=== PATIENT | male | born 1935 | race Caucasian/White ===

== ENCOUNTER 2016-11-27 11:03 | Inpatient (IN) | payer MEDICARE, BC ==
[~2016-11-27] VITALS: Ht 172.7 cm; Wt 67.9 kg
[2016-11-27] MEDS ORDERED: SODIUM CHLORIDE 0.9% 1,000 ML ONE ×2 (11:18→14:20)
[2016-11-27] MEDS ORDERED: CEFTRIAXONE 1 GM VIAL ONE (13:09)
[2016-11-27] MEDS ORDERED: SODIUM CHLORIDE 0.9% 100 ML IV ONE (13:10)
[2016-11-27] MEDS ORDERED: MAG HYDROX 30 ML UDC PO PRN (14:05)
[2016-11-27] MEDS ORDERED: FLEET ENEMA 132 ML BTL RECTAL PRN (14:05)
[2016-11-27] MEDS ORDERED: BISACODYL EC 5 MG TAB PO PRN (14:05)
[2016-11-27] MEDS ORDERED: LOPERAMIDE 2 MG CAPSULE PO PRN (14:05)
[2016-11-27] MEDS ORDERED: ALU/MAG/SIM 30 ML UDC PO PRN (14:05)
[2016-11-27] MEDS ORDERED: LACT RINGERS 1,000 ML IV SCH (14:05)
[2016-11-27] MEDS ORDERED: BISACODYL 10 MG SUPP RECTAL PRN (14:05)
[2016-11-27] MEDS: ACETAMINOPHEN 325 MG TAB PO SCH ×2 (14:05→22:05)
[2016-11-27] MEDS ORDERED: GLUCAGON 1 MG VIAL IM PRN (14:05)
[2016-11-27] MEDS ORDERED: GUAIFEN/DM 10 ML UDC PO PRN (14:05)
[2016-11-27] MEDS ORDERED: DEXTROSE 50% SYRINGE 50 ML IV PRN (14:05)
[2016-11-27] MEDS ORDERED: SALINE FLUSH 10 ML FLUSH PRN (14:05)
[2016-11-27] MEDS ORDERED: ONDANSETRON 4 MG VIAL IV PRN (14:05)
[2016-11-27 15:20] VITALS: BP_SYST 108; BP_SYST 110; RESP 18; TEMP 97.5; BMI 22.6
[2016-11-27] MEDS: DUONEB INH SCH ×2 (17:01→23:43)
[2016-11-27 17:05] VITALS: RESP 18
[2016-11-27 19:22] VITALS: BP_SYST 109; RESP 16; TEMP 98.2
[2016-11-27] MEDS: SALINE FLUSH 10 ML FLUSH SCH (19:42)
[2016-11-27] MEDS: Atorvastatin 40 MG TAB PO SCH (20:46)
[2016-11-27] MEDS: risperiDONE 0.25 MG TAB PO SCH (20:47)
[2016-11-27] MEDS: MEMANTINE 5 MG TAB PO SCH (20:47)
[2016-11-27] MEDS: DONEPEZIL HCL 5 MG TAB PO SCH (20:47)
[2016-11-27] MEDS: FAMOTIDINE 20 MG TAB PO SCH (20:47)
[2016-11-27] MEDS: LEVEMIR INSULIN SUBQ SCH (20:48)
[2016-11-27] MEDS ORDERED: METOPROLOL TART 50 MG TAB PO SCH (21:00)
[2016-11-27] MEDS: ACETAMINOPHEN 500 MG TAB PO SCH (22:44)
[2016-11-27 23:29] VITALS: BP_SYST 114; RESP 20; TEMP 97.5
[2016-11-28] VITALS (8 sets, daily range): BP systolic 105–146; RESP 18–24; TEMP 97.2–98; Ht 172.7 cm; Wt 67.9 kg
[2016-11-28] MEDS: SODIUM CHLORIDE 0.9% FLUSH BAG 500 ML IV SCH (06:09)
[2016-11-28] MEDS: ACETAMINOPHEN 500 MG TAB PO SCH ×3 (06:17→22:40)
[2016-11-28] MEDS: SALINE FLUSH 10 ML FLUSH SCH ×2 (07:33→19:39)
[2016-11-28] MEDS: DUONEB INH SCH ×3 (07:47→23:40)
[2016-11-28] MEDS: ASPIRIN 81 MG CHEW TAB PO SCH (09:08)
[2016-11-28] MEDS: risperiDONE 0.25 MG TAB PO SCH ×2 (09:08→20:27)
[2016-11-28] MEDS: CEFTRIAXONE 1 GM in SODIUM CHLORIDE 0.9% 50 ML IV SCH (09:08)
[2016-11-28] MEDS: MEMANTINE 5 MG TAB PO SCH ×2 (09:08→20:27)
[2016-11-28] MEDS: FAMOTIDINE 20 MG TAB PO SCH ×2 (09:08→20:28)
[2016-11-28] MEDS: LEVEMIR INSULIN SUBQ SCH ×2 (09:09→20:28)
[2016-11-28] MEDS: ENOXAPARIN 30 MG/0.3 ML SYR SUBQ SCH (09:09)
[2016-11-28] MEDS: SODIUM CHLORIDE 0.45% 1,000 ML IV SCH (09:35)
[2016-11-28] MEDS: Atorvastatin 40 MG TAB PO SCH (20:27)
[2016-11-28] MEDS: DONEPEZIL HCL 5 MG TAB PO SCH (20:28)
[2016-11-29] VITALS (12 sets, daily range): BP systolic 103–128; RESP 18–20; TEMP 97.2–98
[2016-11-29] MEDS: SODIUM CHLORIDE 0.9% FLUSH BAG 500 ML IV SCH (05:17)
[2016-11-29] MEDS: SODIUM CHLORIDE 0.45% 1,000 ML IV SCH (05:27)
[2016-11-29] MEDS: ACETAMINOPHEN 500 MG TAB PO SCH ×3 (05:54→22:08)
[2016-11-29] MEDS: SALINE FLUSH 10 ML FLUSH SCH ×2 (07:37→22:08)
[2016-11-29] MEDS: DUONEB INH SCH ×3 (08:04→23:07)
[2016-11-29] MEDS: MEMANTINE 5 MG TAB PO SCH ×2 (09:02→22:09)
[2016-11-29] MEDS: risperiDONE 0.25 MG TAB PO SCH ×2 (09:02→22:09)
[2016-11-29] MEDS: FAMOTIDINE 20 MG TAB PO SCH ×2 (09:02→22:09)
[2016-11-29] MEDS: ASPIRIN 81 MG CHEW TAB PO SCH (09:02)
[2016-11-29] MEDS: ENOXAPARIN 30 MG/0.3 ML SYR SUBQ SCH (09:03)
[2016-11-29] MEDS: CEFTRIAXONE 1 GM in SODIUM CHLORIDE 0.9% 50 ML IV SCH (09:03)
[2016-11-29] MEDS: LEVEMIR INSULIN SUBQ SCH (09:04)
[2016-11-29] MEDS: Atorvastatin 40 MG TAB PO SCH (22:08)
[2016-11-29] MEDS: DONEPEZIL HCL 5 MG TAB PO SCH (22:09)
[2016-11-30 05:30] VITALS: BP_SYST 131; TEMP 97.5
[2016-11-30 05:31] VITALS: RESP 20
[2016-11-30] MEDS: SODIUM CHLORIDE 0.9% FLUSH BAG 500 ML IV SCH (05:32)
[2016-11-30] MEDS: ACETAMINOPHEN 500 MG TAB PO SCH ×3 (05:48→15:21)
[2016-11-30 07:40] VITALS: BP_SYST 118; RESP 20; TEMP 97.6
[2016-11-30] MEDS: ASPIRIN 81 MG CHEW TAB PO SCH (08:19)
[2016-11-30] MEDS: FAMOTIDINE 20 MG TAB PO SCH (08:19)
[2016-11-30] MEDS: CEFTRIAXONE 1 GM in SODIUM CHLORIDE 0.9% 50 ML IV SCH (08:19)
[2016-11-30] MEDS: risperiDONE 0.25 MG TAB PO SCH (08:19)
[2016-11-30] MEDS: ENOXAPARIN 30 MG/0.3 ML SYR SUBQ SCH (08:19)
[2016-11-30] MEDS: MEMANTINE 5 MG TAB PO SCH (08:19)
[2016-11-30] MEDS: LEVEMIR INSULIN SUBQ SCH (08:20)
[2016-11-30] MEDS: SALINE FLUSH 10 ML FLUSH SCH (08:20)
[2016-11-30] MEDS: DUONEB INH SCH ×2 (08:28→15:45)
[2016-11-30 11:14] VITALS: BP_SYST 129; RESP 20; TEMP 97.4
[2016-11-30 15:18] VITALS: BP_SYST 121; RESP 20; TEMP 97.8
[2016-11-30] MEDS ORDERED: SACCHA BOULARDII 250MG CAP PO SCH (16:00)
[2016-11-30 16:46] VITALS: BP_SYST 121; RESP 20; TEMP 97.8
[2016-11-30] MEDS ORDERED: BACITRACIN OINT TOPICAL SCH (21:00)
[2016-11-30] MEDS ORDERED: CEFUROXIME 250 MG TAB PO SCH (21:00)
== END 2016-11-30 18:59 | disposition home health service (06) | DRG 193 ==
LOC: ENRESERVDT → ENRESERVTM → ER 11:03 → EMR 14:23 → ENPENDDIS 14:23 → 3NT 15:22
PROVIDERS: ADMIT Family Medicine; ATTEND Family Medicine
CPT/HCPCS: 36415; 70450; 71010; 71020; 80048; 80053; 81001; 82553; 82947; 83605; 83735; 83880; 84484; 85025; 87040; 87071; 87088; 87804; 93005; 94640; 94799; 96361; 96365; 96372; 99223; 99232; 99233; 99239